=== PATIENT | female | born 1950 | race Caucasian/White ===

== ENCOUNTER → 2018-06-14 | Outpatient (CLI) | payer BC ==
--- NOTE | 2018-06-16 10:07 | MM ---
Reason for exam: screening (asymptomatic). Last mammogram was performed 2 years ago. History: Patient is postmenopausal. Family history of breast cancer in maternal grandmother at age 50. Benign right mammotome panel of the right breast, October 29, 2009. Took hormonal contraceptives for 3 years beginning at age 21. Took estrogen for 10 years beginning at age 45. Physical Findings: A clinical breast exam by your physician is recommended on an annual basis and results should be correlated with mammographic findings. MG Screening Mammo w CAD Bilateral CC and MLO view(s) were taken. Prior study comparison: June 24, 2016, bilateral MG screening mammo w CAD. December 17, 2012, bilateral digital screening mammo w/CAD. There are scattered fibroglandular densities. Previous mammotome biopsy in the right breast. No significant changes when compared with prior studies. ASSESSMENT: Negative, BI-RAD 1 RECOMMENDATION: Routine screening mammogram of both breasts in 1 year.
== END | disposition home or self-care (01) ==
LOC: RADMAMWWP 13:29
PROVIDERS: ATTEND Family Medicine
DX: Z12.31 Encounter for screening mammogram for malignant neoplasm of breast (principal)
CPT/HCPCS: 77067

== ENCOUNTER → 2022-05-28 | Outpatient (CLI) | payer MEDICARE ==
--- NOTE | 2022-05-30 15:50 | MM ---
Reason for Exam: Screening (asymptomatic). Last mammogram was performed 4 year(s) and 0 month(s) ago. Patient History: Menarche at age 10. First Full-Term at age 24. Left ovary removed at age 33. Right ovary removed at age 33. Hysterectomy at age 33. Postmenopausal. Estrogen for 10 years from age 45 until age 55. Hormonal Contraceptives, starting at age 21 for 3 years. 10/29/2009, Benign Core Biopsy on the right side. Maternal grandmother had breast cancer, age 50. Risk Values: Sirena 5 year model risk: 2.0%. NCI Lifetime model risk: 5.6%. Prior Study Comparison: 12/17/2012 Bilateral Screening Mammogram, [facility]. 06/24/2016 Bilateral Screening Mammogram, [facility]. 06/14/2018 Bilateral Screening Mammogram, [facility]. Tissue Density: There are scattered fibroglandular densities. Findings: Analyzed By CAD. There is no suspicious group of microcalcifications or new suspicious mass in either breast. Overall Assessment: Negative, BI-RAD 1 Management: Screening Mammogram of both breasts in 1 year. 1. Patient should continue monthly self breast exams. 2. A clinical breast exam by your physician is recommended on an annual basis. 3. This exam should not preclude additional follow-up of suspicious palpable abnormalities. Electronically signed and approved by: Dionne Lawton M.D. Radiologist
== END | disposition home or self-care (01) ==
LOC: RADMAMWWP 15:19
PROVIDERS: ATTEND Family Medicine
DX: Z12.31 Encounter for screening mammogram for malignant neoplasm of breast (principal); Z80.3 Family history of malignant neoplasm of breast; Z78.0 Asymptomatic menopausal state
CPT/HCPCS: 77063; 77067

== ENCOUNTER → 2023-02-09 | Outpatient (CLI) | payer MEDICARE ==
--- NOTE | 2023-02-09 12:51 | NM ---
EXAMINATION TYPE: NM thyroid image only DATE OF EXAM: 02/09/2023 COMPARISON: NONE HISTORY: Abnormal thyroid function TECHNIQUE: After the intravenous administration of 10.3 mCi Tc 99m Sodium Pertechnetate. FINDINGS: Intense nodular uptake involving the right jugular the thyroid in 2 locations in left thyroid bed. No other residual significant uptake within the expected region of the thyroid. IMPRESSION: 1. Suspect that these may represent autonomously functioning nodules with very remaining residual thy roid uptake. Recommend ultrasound for further evaluation.
== END | disposition home or self-care (01) ==
LOC: RADNMMAIN 10:39
PROVIDERS: ATTEND Family Medicine
DX: I20.9 Angina pectoris, unspecified (principal); E89.0 Postprocedural hypothyroidism; R94.6 Abnormal results of thyroid function studies
CPT/HCPCS: 78013; A9512

== ENCOUNTER 2023-03-06 11:33 | Day surgery (SDC) | payer MEDICARE ==
[~2023-03-06 11:33] MED LIST: ALPRAZolam 0.25 MG TAB PO PRN
[2023-03-06 13:04] VITALS: RESP 16; TEMP 98
[2023-03-06 14:17] VITALS: BP 138/81; PULSE 93
--- NOTE | 2023-03-06 14:56 | US ---
ULTRASOUND GUIDED FNA THYROID BIOPSY: CLINICAL HISTORY: Status post thyroidectomy with left thyroid bed nodule noted by outside ultrasound FINDINGS: The procedure was explained to the patient. The risks, complications, benefits and alternatives were discussed and any questions were answered. Informed consent was obtained. Patient was placed supin e on the ultrasound table and prepped and draped in the usual sterile fashion. Utilizing a 25 gauge needle, five passes were made into the requested left thyroid bed nodule. Patient was stable throughout the procedure. Pathology is pending. All elements of maximal barrier technique were utilized. IMPRESSION: 1. Successful ultrasound guided FNA thyroid biopsy.
== END 2023-03-06 14:05 | disposition home or self-care (01) ==
LOC: RADPROMAIN 11:33
PROVIDERS: ATTEND Family Medicine
DX: E04.1 Nontoxic single thyroid nodule (principal); E89.0 Postprocedural hypothyroidism
CPT/HCPCS: 10005; 88173; 88305

== ENCOUNTER 2023-12-13 17:55 | Emergency (ER) | payer MEDICARE ==
--- NOTE | 2023-12-13 18:11 | ED ---
SOB HPI - General Chief Complaint: Shortness of Breath Stated Complaint: SOB Time Seen by Provider: 12/13/23 18:08 Source: patient, RN notes reviewed Mode of arrival: wheelchair Limitations: no limitations - History of Present Illness Initial Comments: Patient is a 73-year-old female presented to ER with a chief complaint of shortness of breath. Patient states for the past 4 days she has has been feeling short of breath with extreme increase in symptoms in the past couple of hours. She states she has not been able to lay flat and has been having her bed propped up as she has a motorized bed. She has been using an inhaler without any relief today. Patient states she has been having a chronic cough since she was diagnosed with COVID at the end of October. She also is reporting a pressure sensation in her chest. Denies any dizziness, lightheadedness, nausea, vomiting, fevers, chills, abdominal pain, urinary complaints, constipation/diarrhea. - Related Data Home Medications Medication Instructions Recorded Confirmed Topiramate [Topamax] 100 mg PO HS 04/02/15 03/06/23 Levothyroxine Sodium [Synthroid] 25 mcg PO DAILY 02/26/23 03/06/23 QUEtiapine [SEROquel] 50 mg PO HS 02/26/23 03/06/23 Previous Rx's Medication Instructions Recorded Albuterol Inhaler [Ventolin Hfa 1 - 2 puff INHALATION Q6H PRN #1 12/13/23 Inhaler] each Allergies Allergy/AdvReac Type Severity Reaction Status Date / Time No Known Allergies Allergy Verified 12/13/23 18:00 Review of Systems ROS Statement: Those systems with pertinent positive or pertinent negative responses have been documented in the HPI. ROS Other: All systems not noted in ROS Statement are negative. Past Medical History Past Medical History: Osteoarthritis (OA), Thyroid Disorder History of Any Multi-Drug Resistant Organisms: None Reported Past Surgical History: Section, Hysterectomy Additional Past Surgical History / Comment(s): partial thyroidectomy - unsure if it was cancer Past Anesthesia/Blood Transfusion Reactions: No Reported Reaction Past Psychological History: Bipolar, Depression Smoking Status: Never smoker Past Alcohol Use History: Rare Past Drug Use History: None Reported - Past Family History Mother Family Medical History: No Reported History General Exam Limitations: no limitations General appearance: alert, anxious Head exam: Present: atraumatic, normocephalic, normal inspection Eye exam: Present: normal appearance, PERRL, EOMI. Absent: scleral icterus, conjunctival injection, periorbital swelling Respiratory exam: Present: wheezes (Expiratory wheezes bilaterally. Audible without stethoscope) Cardiovascular Exam: Present: normal rhythm, tachycardia, normal heart sounds Extremities exam: Present: normal inspection, full ROM, normal capillary refill. Absent: tenderness, pedal edema, joint swelling, calf tenderness Neurological exam: Present: alert, oriented X3, CN II-XII intact Psychiatric exam: Present: normal affect, normal mood Skin exam: Present: warm, dry, intact, normal color. Absent: rash Course Vital Signs 12/13/23 12/13/23 12/13/23 17:58 18:07 18:18 Temperature 98.6 F Pulse Rate 122 H 115 H Respiratory 30 H 26 H Rate Blood Pressure 182/99 O2 Sat by Pulse 95 Oximetry 12/13/23 12/13/23 12/13/23 18:27 19:38 19:48 Temperature Pulse Rate 112 H 102 H Respiratory 20 Rate Blood Pressure O2 Sat by Pulse Oximetry 12/13/23 12/13/23 12/13/23 19:49 19:50 20:55 Temperature 98.2 F Pulse Rate 110 H 106 H 98 Respiratory 20 22 Rate Blood Pressure 168/82 180/81 O2 Sat by Pulse 98 94 L Oximetry 12/13/23 21:29 Temperature 98.2 F Pulse Rate 106 H Respiratory 22 Rate Blood Pressure 191/95 O2 Sat by Pulse 94 L Oximetry Medical Decision Making - Medical Decision Making Was pt. sent in by a medical professional or institution (, PA, CYANIDE FURNACE OPERATOR, urgent care, hospital, or senior care...) When possible be specific @ -No Did you speak to anyone other than the patient for history (EMS, parent, family, police, friend...)? What history was obtained from this source @ -No Did you review nursing and triage notes (agree or disagree)? Why? @ -I reviewed and agree with nursing and triage notes Were old charts reviewed (outside hosp., previous admission, EMS record, old EKG, old radiological studies, urgent care reports/EKG's, senior care records)? Report findings @ -No old charts were reviewed Differential Diagnosis (chest pain, altered mental status, abdominal pain women, abdominal pain men, vaginal bleeding, weakness, fever, dyspnea, syncope, headache, dizziness, GI bleed, back pain, seizure, CVA, palpatations, mental health, musculoskeletal)? @ -Differential Dyspnea:Coronary syndrome, arrhythmia, tamponade, asthma, COPD, pulmonary embolism, pneumonia, pneumothorax, pulmonary effusion, anaphylaxis, diabetic ketoacidosis, flailed chest, pulmonary contusion, diaphragmatic rupture, anemia, neuromuscular, this is not meant to be an all-inclusive list. EKG interpreted by me (3pts min.). @ -As above X-rays interpreted by me (1pt min.). @ -Chest x-ray interpreted by me shows no acute cardiopulmonary process. CT interpreted by me (1pt min.). @ -None done U/S interpreted by me (1pt. min.). @ -None done What testing was considered but not performed or refused? (CT, X-rays, U/S, labs)? Why? @ -None What meds were considered but not given or refused? Why? @ -None Did you discuss the management of the patient with other professionals (professionals i.e. , PA, CYANIDE FURNACE OPERATOR, lab, RT, psych nurse, social contact worker, graduate student instructor, teacher, aboriginal home school liaison officer, case checker)? Give summary @ -No Was smoking cessation discussed for >3mins.? @ -No Was critical care preformed (if so, how long)? @ -No Were there social determinants of health that impacted care today? How? (Ho melessness, low income, unemployed, alcoholism, drug addiction, transportation, low edu. Level, literacy, decrease access to med. care, shelter, rehab)? @ -No Was there de-escalation of care discussed even if they declined (Discuss DNR or withdrawal of care, Hospice)? DNR status @ -No What co-morbidities impacted this encounter? (DM, HTN, Smoking, COPD, CAD, Cancer, CVA, ARF, Chemo, Hep., AIDS, mental health diagnosis, sleep apnea, morbid obesity)? @ -None Was patient admitted / discharged? Hospital course, mention meds given and route, prescriptions, significant lab abnormalities, going to OR and other pertinent info. @ -Discharged. Patient is a 73 year old female presenting to the ER with a chief complaint to shortness of breath. History and physical exam completed. Vitals significant for tachycardia at 122 bpm. Patient's oxygen saturation 95 on room air. Patient was having conversational dyspnea and appeared mildly in distress with audible wheezing. Bilateral significant expiratory wheezes on exam. Labs obtained significant for white blood cell count of 14.1. D-dimer and troponin negative. EKG showed sinus tachycardia with no acute evidence of infarct or ischemia. Influenza, RSV, COVID-negative. Chest x-ray interpreted by me shows no acute cardiopulmonary process. Patient received 2 DuoNeb treatments with improvement of wheezing. Patient also received IV Solu-Medrol and Decadron. Patient was satting 98% on 4 L nasal cannula. Patient was monitored in the ER as weaned off oxygen as she is not on any at home. Admission was considered but patient stated she would like to go home as she can follow-up with her primary care tomorrow. Patient remained stable on room air with oxygen saturations of 94 at discharge. Strict return parameters were discussed. Patient prescribed albuterol inhaler. Advised her to follow-up with PCP in the next 1 to 2 days. Patient and family, at bedside, expressed understanding and agreement with care plan. Case discussed with ER attending, Dr. June. Undiagnosed new problem with uncertain prognosis? @ -No Drug Therapy requiring intensive monitoring for toxicity (Heparin, Nitro, Insulin, Cardizem)? @ -No Were any procedures done? @ -No Diagnosis/symptom? @ -Bronchospasm Acute, or Chronic, or Acute on Chronic? @ -Acute Uncomplicated (without systemic symptoms) or Complicated (systemic symptoms)? @ -Complicated Side effects of treatment? @ -No Exacerbation, Progression, or Severe Exacerbation? @ -No Poses a threat to life or bodily function? How? (Chest pain, USA, CT, pneumonia, PE, COPD, DKA, ARF, appy, cholecystitis, CVA, Diverticulitis, Homicidal, Suicidal, threat to staff... and all critical care pts) @ -Yes, bronchospasm can lead to acute respiratory failure which can be life- threatening. - Lab Data Result diagrams: 12/13/23 18:23 12/13/23 18:23 Lab Results 12/13/23 12/13/23 12/13/23 Range/Units 18:23 18:23 18:23 WBC 14.1 H (3.8-10.6) k/uL RBC 4.45 (3.80-5.40) m/uL Hgb 13.0 (11.4-16.0) gm/dL Hct 38.7 (34.0-46.0) % MCV 87.1 (80.0-100.0) fL MCH 29.2 (25.0-35.0) pg MCHC 33.5 (31.0-37.0) g/dL RDW 13.9 (11.5-15.5) % Plt Count 345 (150-450) k/uL MPV 7.5 PT 10.3 (10.0-12.5) sec INR 0.9 (<1.2) APTT 26.4 (22.0-30.0) sec D-Dimer 0.52 (<0.60) mg/L FEU Sodium 145 (137-145) mmol/L Potassium 3.7 (3.5-5.1) mmol/L Chloride 115 H (98-107) mmol/L Carbon Dioxide 23 (22-30) mmol/L Anion Gap 7 mmol/L BUN 14 (7-17) mg/dL Creatinine 1.02 (0.52-1.04) mg/dL Est GFR (CKD-EPI)AfAm 64 (>60 ml/min/1.73 sqM) Est GFR (CKD-EPI)NonAf 55 (>60 ml/min/1.73 sqM) Glucose 141 H (74-99) mg/dL Calcium 9.0 (8.4-10.2) mg/dL Magnesium 2.0 (1.6-2.3) mg/dL Total Bilirubin 0.3 (0.2-1.3) mg/dL AST 20 (14-36) U/L ALT 15 (4-34) U/L Alkaline Phosphatase 101 (38-126) U/L Troponin I (0.000-0.034) ng/mL Total Protein 7.3 (6.3-8.2) g/dL Albumin 4.0 (3.5-5.0) g/dL Influenza Type A (PCR) (Not Detectd) Influenza Type B (PCR) (Not Detectd) RSV (PCR) (Not Detectd) SARS-CoV-2 (PCR) (Not Detectd) 12/13/23 12/13/23 Range/Units 18:23 18:23 WBC (3.8-10.6) k/uL RBC (3.80-5.40) m/uL Hgb (11.4-16.0) gm/dL Hct (34.0-46.0) % MCV (80.0-100.0) fL MCH (25.0-35.0) pg MCHC (31.0-37.0) g/dL RDW (11.5-15.5) % Plt Count (150-450) k/uL MPV PT (10.0-12.5) sec INR (<1.2) APTT (22.0-30.0) sec D-Dimer (<0.60) mg/L FEU Sodium (137-145) mmol/L Potassium (3.5-5.1) mmol/L Chloride (98-107) mmol/L Carbon Dioxide (22-30) mmol/L Anion Gap mmol/L BUN (7-17) mg/dL Creatinine (0.52-1.04) mg/dL Est GFR (CKD-EPI)AfAm (>60 ml/min/1.73 sqM) Est GFR (CKD-EPI)NonAf (>60 ml/min/1.73 sqM) Glucose (74-99) mg/dL Calcium (8.4-10.2) mg/dL Magnesium (1.6-2.3) mg/dL Total Bilirubin (0.2-1.3) mg/dL AST (14-36) U/L ALT (4-34) U/L Alkaline Phosphatase (38-126) U/L Troponin I <0.012 (0.000-0.034) ng/mL Total Protein (6.3-8.2) g/dL Albumin (3.5-5.0) g/dL Influenza Type A (PCR) Not Detected (Not Detectd) Influenza Type B (PCR) Not Detected (Not Detectd) RSV (PCR) Not Detected (Not Detectd) SARS-CoV-2 (PCR) Not Detected (Not Detectd) - EKG Data -: EKG Interpreted by [facility] EKG Comments: EKG taken at 18: 12 shows sinus tachycardia with no acute ST segment or T wave abnormalities. Ventricular rate 116, MS interval 176, QRS duration 76, QT/QTc 341/410. - Radiology Data Radiology results: report reviewed, image reviewed Disposition Clinical Impression: Bronchospasm Disposition: HOME SELF-CARE Condition: Stable Instructions (If sedation given, give patient instructions): Bronchospasm (ED) Additional Instructions: Please follow-up with primary care in the next 1 to 2 days. Please have low threshold to returning to ER for new or worsening symptoms Prescriptions: Albuterol Inhaler [Ventolin Hfa Inhaler] 1 - 2 puff INHALATION Q6H PRN #1 each PRN Reason: Shortness Of Breath Is patient prescribed a controlled substance at d/c from ED?: No Referrals: John French MD [REFERRING] - 1-2 days Time of Disposition: 21:08
[2023-12-13] MEDS: IPRATROPIUM-ALBUTEROL 3 ML NEB INHALATION STA ×2 (18:15→19:38)
[2023-12-13 18:48] LABS: HCT 38.7 % (34.0-46.0); MCH 29.2 pg (25.0-35.0); MCHC 33.5 g/dL (31.0-37.0); MCV 87.1 fL (80.0-100.0); Mean Platelet Volume 7.5; Platelet Count 345 k/uL (150-450); RBC 4.45 m/uL (3.80-5.40); RDW 13.9 % (11.5-15.5); WBC 14.1 k/uL (3.8-10.6)
--- NOTE | 2023-12-13 18:56 | XR ---
EXAMINATION TYPE: XR chest 2V DATE OF EXAM: 12/13/2023 6:46 PM CLINICAL INDICATION:Female, 73 years old with history of wheezing; COMPARISON: None TECHNIQUE: XR chest 2V Frontal and lateral views of the chest. FINDINGS: Lungs/Pleura: There is no evidence of pleural effusion, focal consolidation, or pneumothorax. Pulmonary vascularity: Unremarkable. Heart/mediastinum: Cardiomediastinal silhouette is unremarkable. Musculoskeletal: No acute osseous pathology. IMPRESSION: No acute cardiopulmonary disease/process.
[2023-12-13 19:03] LABS: INR 0.9 (<1.2); Partial Thromboplastin Time 26.4 sec (22.0-30.0); Prothrombin Time 10.3 sec (10.0-12.5)
[2023-12-13 19:11] LABS: ALT 15 U/L (4-34); AST 20 U/L (14-36); African American GFR (CKD) 64 (>60 ml/min/1.73 sqM); Alkaline Phosphatase 101 U/L (38-126); Anion Gap 7 mmol/L; Blood Urea Nitrogen 14 mg/dL (7-17); Carbon Dioxide 23 mmol/L (22-30); Chloride 115 mmol/L (98-107); Glucose 141 mg/dL (74-99); Non-African American GFR(CKD) 55 (>60 ml/min/1.73 sqM); Potassium 3.7 mmol/L (3.5-5.1); Sodium 145 mmol/L (137-145); Total Bilirubin 0.3 mg/dL (0.2-1.3); Total Protein 7.3 g/dL (6.3-8.2)
[2023-12-13] MEDS: methylPREDNISolone SOD SUCCI 125 MG/2 ML VIAL IV STA (19:47)
[2023-12-13] MEDS: DEXAMETHASONE SOD PHOSPHATE 10 MG/ML 1 ML VIAL IVP STA (21:22)
[2023-12-13 21:26] VITALS: RESP 22; TEMP 98.2
[2023-12-13 21:58] VITALS: BP 191/95; PULSE 106
== END 2023-12-13 21:31 | disposition home or self-care (01) ==
LOC: EC 17:55
DX: J98.01 Acute bronchospasm (principal); R00.0 Tachycardia, unspecified; F31.9 Bipolar disorder, unspecified; E07.9 Disorder of thyroid, unspecified; Z20.822 Contact with and (suspected) exposure to COVID-19; Z79.890 Hormone replacement therapy; Z79.899 Other long term (current) drug therapy
CPT/HCPCS: 36415; 94640 ×2; 93005; 85379; 80053; 83735; 84484; 85027; 85610; 85730; 87636; 71046; 99285; 96374; 96375; J1100; J2930

== ENCOUNTER 2024-01-01 06:09 | Observation (INO) | payer MEDICARE ==
--- NOTE | 2024-01-01 06:22 | ED ---
General Adult HPI - General Chief complaint: Shortness of Breath Stated complaint: SOB Time Seen by Provider: 01/01/24 06:13 Source: patient, RN notes reviewed, old records reviewed Mode of arrival: wheelchair Limitations: no limitations - History of Present Illness Initial comments: 73-year-old female presents emergency department chief complaint of shortness of breath. Patient states she was seen few weeks ago in the emergency department follow-up with line service attendant felt that she may have underlying asthma. Patient states her pulse ox at home was 89. Patient states she was placed on antibiotics and steroids states that she just finished her steroids a few days ago and symptoms have worsened. Patient states that she did try a rescue inhaler at home with minimal relief. She states the wheezing, shortness of breath is worsening. Patient states she has a nonproductive cough she states she has some chest pressure. Patient denies any leg swelling no history of DVT or PE. - Related Data Home Medications Medication Instructions Recorded Confirmed Topiramate [Topamax] 100 mg PO HS 04/02/15 01/01/24 QUEtiapine [SEROquel] 50 mg PO HS 02/26/23 01/01/24 Levothyroxine Sodium [Synthroid] 25 mcg PO HS 01/01/24 01/01/24 Previous Rx's Medication Instructions Recorded Albuterol Inhaler [Ventolin Hfa 1 - 2 puff INHALATION Q6H PRN #1 12/13/23 Inhaler] each Allergies Allergy/AdvReac Type Severity Reaction Status Date / Time No Known Allergies Allergy Verified 12/13/23 18:00 Review of Systems ROS Statement: Those systems with pertinent positive or pertinent negative responses have been documented in the HPI. ROS Other: All systems not noted in ROS Statement are negative. Past Medical History Past Medical History: Osteoarthritis (OA), Thyroid Disorder History of Any Multi-Drug Resistant Organisms: None Reported Past Surgical History: Section, Hysterectomy Additional Past Surgical History / Comment(s): partial thyroidectomy - unsure if it was cancer Past Anesthesia/Blood Transfusion Reactions: No Reported Reaction Past Psychological History: Bipolar, Depression Smoking Status: Never smoker Past Alcohol Use History: Rare Past Drug Use History: None Reported - Past Family History Mother Family Medical History: No Reported History General Exam Limitations: no limitations General appearance: alert, in distress Head exam: Present: atraumatic, normocephalic, normal inspection Eye exam: Present: normal appearance, PERRL, EOMI. Absent: scleral icterus, conjunctival injection, periorbital swelling ENT exam: Present: normal exam, normal oropharynx, mucous membranes moist Neck exam: Present: normal inspection, full ROM. Absent: tenderness, meningismus, lymphadenopathy Respiratory exam: Present: respiratory distress, wheezes, decreased breath sounds. Absent: normal lung sounds bilaterally, rales, rhonchi, stridor Cardiovascular Exam: Present: normal rhythm, tachycardia, normal heart sounds. Absent: systolic murmur, diastolic murmur, rubs, gallop, clicks Neurological exam: Present: alert, oriented X3 Course Vital Signs 01/01/24 01/01/24 01/01/24 06:10 06:27 06:39 Temperature 97.7 F Pulse Rate 118 H 104 H 112 H Respiratory 36 H Rate Blood Pressure 182/75 O2 Sat by Pulse 93 L Oximetry 01/01/24 01/01/24 01/01/24 06:48 07:16 08:25 Temperature 98.6 F Pulse Rate 111 H 107 H 98 Respiratory 17 18 Rate Blood Pressure 179/82 136/78 O2 Sat by Pulse 99 97 96 Oximetry 01/01/24 01/01/24 01/01/24 08:36 11:42 11:52 Temperature Pulse Rate 106 H 104 H 106 H Respiratory Rate Blood Pressure O2 Sat by Pulse Oximetry 01/01/24 12:10 Temperature Pulse Rate 98 Respiratory 22 Rate Blood Pressure 151/73 O2 Sat by Pulse 93 L Oximetry EKG Findings - EKG Comments: EKG Findings:: EKG performed at 6: 23 sinus tachycardia rate of 110 NH 137 QRS 63 QT/QTc 241/306 - EKG Results: EKG: interpreted by LEO Medical Decision Making - Medical Decision Making Was pt. sent in by a medical professional or institution (, PA, CLERK CASHIER, urgent care, hospital, or [facility]...) When possible be specific @ -No Did you speak to anyone other than the patient for history (EMS, parent, family, police, friend...)? What history was obtained from this source @ -No Did you review nursing and triage notes (agree or disagree)? Why? @ -I reviewed and agree with nursing and triage notes Were old charts reviewed (outside hosp., previous admission, EMS record, old EKG, old radiological studies, urgent care reports/EKG's, [facility] records)? Report findings @Reviewed recent ER records Differential Diagnosis (chest pain, altered mental status, abdominal pain women, abdominal pain men, vaginal bleeding, weakness, fever, dyspnea, syncope, headache, dizziness, GI bleed, back pain, seizure, CVA, palpatations, mental health, musculoskeletal)? @ -Differential Dyspnea: Coronary syndrome, arrhythmia, tamponade, asthma, COPD, pulmonary embolism, pneumonia, pneumothorax, pulmonary effusion, anaphylaxis, diabetic ketoacidosis, flailed chest, pulmonary contusion, diaphragmatic rupture, anemia, herber romuscular, this is not meant to be an all-inclusive list. EKG interpreted by me (3pts min.). @ -As above X-rays interpreted by me (1pt min.). @ -Chest x-ray shows no acute cardiopulmonary process CT interpreted by me (1pt min.). @ -None done U/S interpreted by me (1pt. min.). @ -None done What testing was considered but not performed or refused? (CT, X-rays, U/S, labs)? Why? @ -None What meds were considered but not given or refused? Why? @ -None Did you discuss the management of the patient with other professionals (professionals i.e. , PA, CLERK CASHIER, lab, RT, psych nurse, social worker school, toaster operator, teacher, development officer, rehabilitation caseworker)? Give summary @ -Dr. Branch for admission Was smoking cessation discussed for >3mins.? @ -No Was critical care preformed (if so, how long)? @ -No Were there social determinants of health that impacted care today? How? (Homelessness, low income, unemployed, alcoholism, drug addiction, transportation, low edu. Level, literacy, decrease access to med. care, [place] [facility], rehab)? @ -No Was there de-escalation of care discussed even if they declined (Discuss DNR or withdrawal of care, Hospice)? DNR status @ -No What co-morbidities impacted this encounter? (DM, HTN, Smoking, COPD, CAD, Cancer, CVA, ARF, Chemo, Hep., AIDS, mental health diagnosis, sleep apnea, morbi d obesity)? @ -None Was patient admitted / discharged? Hospital course, mention meds given and route , prescriptions, significant lab abnormalities, going to OR and other pertinent info. @ -[Admitted patient presented in acute respiratory distress, patient required multiple breathing treatments, steroids still has persistent wheezing will be admitted for further evaluation. Undiagnosed new problem with uncertain prognosis? @ -No Drug Therapy requiring intensive monitoring for toxicity (Heparin, Nitro, Insulin, Cardizem)? @ -No Were any procedures done? @ -No Diagnosis/symptom? @ -Acute respiratory distress, asthma exacerbation Acute, or Chronic, or Acute on Chronic? @ -Acute Uncomplicated (without systemic symptoms) or Complicated (systemic symptoms)? @ -Complicated Side effects of treatment? @ -No Exacerbation, Progression, or Severe Exacerbation? @ -Exacerbation Poses a threat to life or bodily function? How? (Chest pain, USA, OR, pneumonia, PE, COPD, DKA, ARF, appy, cholecystitis, CVA, Diverticulitis, Homicidal, Suicidal, threat to staff... and all critical care pts) @ -Yes possible respiratory failure - Lab Data Result diagrams: 01/01/24 06:24 01/01/24 06:24 Lab Results 01/01/24 01/01/24 01/01/24 Range/Units 06:24 06:24 06:24 WBC 15.6 H (3.8-10.6) k/uL RBC 5.08 (3.80-5.40) m/uL Hgb 14.2 (11.4-16.0) gm/dL Hct 45.6 (34.0-46.0) % MCV 89.7 (80.0-100.0) fL MCH 27.9 (25.0-35.0) pg MCHC 31.1 (31.0-37.0) g/dL RDW 14.0 (11.5-15.5) % Plt Count 350 (150-450) k/uL MPV 7.3 Neutrophils % 76 % Lymphocytes % 15 % Monocytes % 4 % Eosinophils % 3 % Basophils % 0 % Neutrophils # 11.9 H (1.3-7.7) k/uL Lymphocytes # 2.3 (1.0-4.8) k/uL Monocytes # 0.6 (0-1.0) k/uL Eosinophils # 0.5 (0-0.7) k/uL Basophils # 0.1 (0-0.2) k/uL Hypochromasia Slight PT 10.5 (10.0-12.5) sec INR 0.9 (<1.2) APTT 25.1 (22.0-30.0) sec Sodium 141 (137-145) mmol/L Potassium 4.8 (3.5-5.1) mmol/L Chloride 112 H (98-107) mmol/L Carbon Dioxide 19 L (22-30) mmol/L Anion Gap 10 mmol/L BUN 19 H (7-17) mg/dL Creatinine 0.99 (0.52-1.04) mg/dL Est GFR (CKD-EPI)AfAm 66 (>60 ml/min/1.73 sqM) Est GFR (CKD-EPI)NonAf 57 (>60 ml/min/1.73 sqM) Glucose 164 H (74-99) mg/dL Plasma Lactic Acid Daniel (0.7-2.0) mmol/L Calcium 8.9 (8.4-10.2) mg/dL Magnesium 2.3 (1.6-2.3) mg/dL Total Bilirubin 1.0 (0.2-1.3) mg/dL AST 32 (14-36) U/L ALT 16 (4-34) U/L Alkaline Phosphatase 77 (38-126) U/L Troponin I (0.000-0.034) ng/mL NT-Pro-B Natriuret Pep 68 pg/mL Total Protein 7.5 (6.3-8.2) g/dL Albumin 4.1 (3.5-5.0) g/dL Influenza Type A (PCR) (Not Detectd) Influenza Type B (PCR) (Not Detectd) RSV (PCR) (Not Detectd) SARS-CoV-2 (PCR) (Not Detectd) 01/01/24 01/01/24 01/01/24 Range/Units 06:24 06:24 06:24 WBC (3.8-10.6) k/uL RBC (3.80-5.40) m/uL Hgb (11.4-16.0) gm/dL Hct (34.0-46.0) % MCV (80.0-100.0) fL MCH (25.0-35.0) pg MCHC (31.0-37.0) g/dL RDW (11.5-15.5) % Plt Count (150-450) k/uL MPV Neutrophils % % Lymphocytes % % Monocytes % % Eosinophils % % Basophils % % Neutrophils # (1.3-7.7) k/uL Lymphocytes # (1.0-4.8) k/uL Monocytes # (0-1.0) k/uL Eosinophils # (0-0.7) k/uL Basophils # (0-0.2) k/uL Hypochromasia PT (10.0-12.5) sec INR (<1.2) APTT (22.0-30.0) sec Sodium (137-145) mmol/L Potassium (3.5-5.1) mmol/L Chloride (98-107) mmol/L Carbon Dioxide (22-30) mmol/L Anion Gap mmol/L BUN (7-17) mg/dL Creatinine (0.52-1.04) mg/dL Est GFR (CKD-EPI)AfAm (>60 ml/min/1.73 sqM) Est GFR (CKD-EPI)NonAf (>60 ml/min/1.73 sqM) Glucose (74-99) mg/dL Plasma Lactic Acid Daniel 1.3 (0.7-2.0) mmol/L Calcium (8.4-10.2) mg/dL Magnesium (1.6-2.3) mg/dL Total Bilirubin (0.2-1.3) mg/dL AST (14-36) U/L ALT (4-34) U/L Alkaline Phosphatase (38-126) U/L Troponin I <0.012 (0.000-0.034) ng/mL NT-Pro-B Natriuret Pep pg/mL Total Protein (6.3-8.2) g/dL Albumin (3.5-5.0) g/dL Influenza Type A (PCR) Not Detected (Not Detectd) Influenza Type B (PCR) Not Detected (Not Detectd) RSV (PCR) Not Detected (Not Detectd) SARS-CoV-2 (PCR) Not Detected (Not Detectd) Disposition Clinical Impression: Asthma exacerbation, Respiratory distress, acute, Hypoxia Disposition: ADMITTED IP TO THIS [facility] Time of Disposition: 07:44
[2024-01-01] MEDS: IPRATROPIUM-ALBUTEROL 3 ML NEB INHALATION STA (06:25)
[2024-01-01 06:36] LABS: Basophils # (A) 0.1 k/uL (0-0.2); Basophils % (A) 0 %; Eosinophils # (A) 0.5 k/uL (0-0.7); Eosinophils % (A) 3 %; HCT 45.6 % (34.0-46.0); HGB 14.2 gm/dL (11.4-16.0); Hypochromasia Slight; Lymphocytes # (A) 2.3 k/uL (1.0-4.8); Lymphocytes % (A) 15 %; MCH 27.9 pg (25.0-35.0); MCHC 31.1 g/dL (31.0-37.0); MCV 89.7 fL (80.0-100.0); Mean Platelet Volume 7.3; Monocytes # (A) 0.6 k/uL (0-1.0); Monocytes % (A) 4 %; Neutrophils # (A) 11.9 k/uL (1.3-7.7); Neutrophils % (A) 76 %; Platelet Count 350 k/uL (150-450); RBC 5.08 m/uL (3.80-5.40); WBC 15.6 k/uL (3.8-10.6)
--- NOTE | 2024-01-01 06:40 | XR ---
EXAMINATION TYPE: XR chest 1V DATE OF EXAM: 01/01/2024 COMPARISON: Chest x-ray December 13, 2023 HISTORY: Difficulty in breathing. TECHNIQUE: Single frontal view of the chest is obtained. FINDINGS: There is no focal air space opacity,, pleural effusion, or pneumothorax seen bilaterally. Mild cardiomegaly is redemonstrated. The osseous structures are intact. IMPRESSION: Mild cardiomegaly without acute pulmonary process.
[2024-01-01] MEDS: methylPREDNISolone SOD SUCCI 125 MG/2 ML VIAL IV STA (06:44)
[2024-01-01 06:47] LABS: ALT 16 U/L (4-34); AST 32 U/L (14-36); African American GFR (CKD) 66 (>60 ml/min/1.73 sqM); Albumin 4.1 g/dL (3.5-5.0); Alkaline Phosphatase 77 U/L (38-126); Anion Gap 10 mmol/L; Blood Urea Nitrogen 19 mg/dL (7-17); Calcium 8.9 mg/dL (8.4-10.2); Carbon Dioxide 19 mmol/L (22-30); Chloride 112 mmol/L (98-107); Glucose 164 mg/dL (74-99); Magnesium 2.3 mg/dL (1.6-2.3); Non-African American GFR(CKD) 57 (>60 ml/min/1.73 sqM); Sodium 141 mmol/L (137-145); Total Protein 7.5 g/dL (6.3-8.2)
[2024-01-01 06:51] LABS: Potassium 4.8 mmol/L (3.5-5.1)
[2024-01-01 06:54] LABS: INR 0.9 (<1.2); Partial Thromboplastin Time 25.1 sec (22.0-30.0); Prothrombin Time 10.5 sec (10.0-12.5)
[2024-01-01 06:56] LABS: NT-Pro-B-Type Natriuretic Pept 68 pg/mL
[2024-01-01] MEDS ORDERED: ONDANSETRON 4 MG/2 ML VIAL IVP PRN (07:44)
[2024-01-01] MEDS ORDERED: NALOXONE 0.4 MG/ML 1 ML VIAL IV PRN (07:44)
[2024-01-01] MEDS ORDERED: IPRATROPIUM-ALBUTEROL 3 ML NEB INHALATION PRN (07:46)
[2024-01-01] MEDS: KETOROLAC 15 MG/ML 1 ML VIAL IVP STA (07:51)
[2024-01-01] MEDS: IPRATROPIUM-ALBUTEROL 3 ML NEB INHALATION SCH ×2 (08:23→11:40)
[2024-01-01] MEDS: SYMBICORT 160-4.5 MCG INHALER INHALATION SCH (09:00)
[2024-01-01] MEDS: LEVOTHYROXINE 25 MCG TAB PO SCH (09:44)
--- NOTE | 2024-01-01 10:10 | P.CNPUL ---
History of Present Illness Consult date: 01/01/24 Requesting physician: Adryan Branch Reason for consult: dyspnea, cough, asthma Chief complaint: Shortness of breath. History of present illness: Pulmonary consult dated January 01, 2024. 73-year-old female, seen in the emergency department, room 3. The patient apparently presented to the hospital, on December 31, at 6:00 in the morning, for shortness of breath. She been having shortness of breath for a couple of weeks. The patient apparently was told by her family doctor, that she had asthma. She apparently has not been doing well ever since she had coronavirus infection in the past. She never has been formally diagnosed with asthma. Her complaints include shortness of breath, wheezing, chest tightness, and cough. The patient was on 2 L of oxygen. No IV fluids. She is a lifelong non-smoker. She denies any significant past medical history, other than hypothyroidism. Her home m edications included Topamax, levothyroxine, Seroquel, and an albuterol inhaler. She has no allergies. White count 15.6, hemoglobin 14.2, hematocrit 45.6, and platelet count 350,000. Sodium 141, potassium 4.8, chlorides 112, CO2 19, anion gap 10, BUN 19, creatinine 0.99. The rest of the labs look normal. Chest x- ray showed only mild cardiomegaly. Review of Systems REVIEW OF SYSTEMS: CONSTITUTIONAL: [Negative.] NEUROLOGIC: [ Negative.] HEENT: [ Negative.] CARDIAC: [Negative.] PULMONARY: Shortness of breath, wheezing, chest tightness, and nonproductive cough. GI: [Negative.] : [Negative.] RHEUMATOLOGIC: [ Negative.] IMMUNOLOGIC: [ Negative.] ENDOCRINE: [Negative. ] DERMATOLOGIC: [Negative.] Past Medical History Past Medical History: Osteoarthritis (OA), Thyroid Disorder History of Any Multi-Drug Resistant Organisms: None Reported Past Surgical History: Section, Hysterectomy Additional Past Surgical History / Comment(s): partial thyroidectomy - unsure if it was cancer Past Anesthesia/Blood Transfusion Reactions: No Reported Reaction Past Psychological History: Bipolar, Depression Smoking Status: Never smoker Past Alcohol Use History: Rare Past Drug Use History: None Reported - Past Family History Mother Family Medical History: No Reported History Medications and Allergies Home Medications Medication Instructions Recorded Confirmed Type Topiramate [Topamax] 100 mg PO HS 04/02/15 01/01/24 History QUEtiapine [SEROquel] 50 mg PO HS 02/26/23 01/01/24 History Albuterol Inhaler [Ventolin Hfa 1 - 2 puff INHALATION Q6H PRN #1 12/13/23 01/01/24 Rx Inhaler] each Levothyroxine Sodium [Synthroid] 25 mcg PO HS 01/01/24 01/01/24 History Allergies Allergy/AdvReac Type Severity Reaction Status Date / Time No Known Allergies Allergy Verified 12/13/23 18:00 Physical Exam Osteopathic Statement: *. No significant issues noted on an osteopathic structural exam other than those noted in the History and Physical/Consult. Vitals: Vital Signs Temp Pulse Resp BP Pulse Ox 01/01/24 08:36 106 H 01/01/24 08:25 98 96 01/01/24 07:16 98.6 F 107 H 18 136/78 97 01/01/24 06:48 111 H 17 179/82 99 01/01/24 06:39 112 H 01/01/24 06:27 104 H 01/01/24 06:10 97.7 F 118 H 36 H 182/75 93 L Intake and Output 12/31/23 01/01/24 01/01/24 22:59 06:59 14:59 Other: Weight 72.575 kg No acute distress, oriented 3. Currently on 2 L of oxygen. Saturations are 97%. HEENT examination is grossly unremarkable. Mucous membranes are moist. No oral lesions. Neck supple. Full range of motion. No adenopathy thyromegaly or neck vein distention. Cardiovascular examination reveals regular rhythm rate. S1-S2 normal. No S3 or S4. No discernible murmur noted. Heart sounds are distant. Heart rate 98 bpm. Lungs reveal expiratory wheezes and rhonchi. No crackles. Breath sounds equal. Slight prolongation on forced maneuver. Abdomen soft bowel sounds are heard. No masses or tenderness. Extremities are intact. No cyanosis clubbing or edema. Skin is without rash or lesion. Neurologic examination is brief but nonfocal. Results - Laboratory Findings CBC and BMP: 01/01/24 06:24 01/01/24 06:24 PT/INR, D-dimer PT 10.5 sec (10.0-12.5) 01/01/24 06:24 INR 0.9 (<1.2) 01/01/24 06:24 Abnormal lab findings: Abnormal Labs 01/01/24 01/01/24 06:24 06:24 WBC 15.6 H Neutrophils # 11.9 H Chloride 112 H Carbon Dioxide 19 L BUN 19 H Glucose 164 H - Diagnostic Findings Chest x-ray: image reviewed Assessment and Plan Assessment: Shortness of breath, chest tightness, cough, wheezing, which could relate to new onset adult type asthma. The patient has not been formally diagnosed. Previous history of coronavirus infection. Lifelong non-smoker. History of hypothyroidism. History of osteoarthritis. Bipolar disorder. Plan: Plan dated January 01, 2024. The patient is seen in the emergency department, room #3. She continues on oxygen at 2 L. Her daughter is with her. She is not receiving any IV fluids. She may have new onset chronic bronchial asthma. I told him that she should see me after discharge, for formal diagnosis. Today, we added Solu-Medrol to her regimen, and also Symbicort. Additional recommendations and suggestions are forthcoming. Prognosis is guarded. Chest x-rays reviewed. The patient is a lifelong non-smoker. Time with Patient: Greater than 30
[2024-01-01] MEDS: methylPREDNISolone SOD SUCCI 125 MG/2 ML VIAL IV SCH (12:01)
[2024-01-01] MEDS ORDERED: methylPREDNISolone SOD SUCCI 125 MG/2 ML VIAL IV SCH (16:00)
[2024-01-01] MEDS: ACETAMINOPHEN TAB 325 MG TAB PO PRN (19:40)
[2024-01-01] MEDS: QUEtiapine 50 MG TAB PO SCH (21:39)
--- NOTE | 2024-01-02 08:09 | P.HPIM ---
History of Present Illness H&P Date: 01/01/24 Chief Complaint: Worsening dyspnea with cough This is a 73-year-old female with past medical history significant for COVID infection in 2021 and in October 2023, obesity, hypothyroidism, osteoarthritis, bipolar, depression, lifelong non-smoker and multiple other medical issues presented to the ER with worsening dyspnea. Reports possible newly diagnosed asthma ,has a rescue inhaler at home. Since her initial COVID infection in 2021 ,she has a lingering nonproductive cough. Complains of worsening dyspnea over the last couple weeks accompanied by wheezing, nonproductive cough with chest pressure after completing antibiotics and a steroid taper.Denies Chest Pain or Palpitations. Denies any lower extremity edema. Denies history of DVT or PE . Attempted her rescue inhaler without relief. Reports O2 Sat at Home 89% on Room Air. Chest x-ray reported mild cardiomegaly without acute pulmonary process. Viral studies negative. afebrile, WBC 15.6, lactic acid 1.3, procalcitonin pending. Hemoglobin 14.2, platelets 350, electrolytes within normal limits with mild elevation of chloride 112, bicarb 19, BUN 19, creatinine 0.99, glucose 164. EKG reported sinus tachycardia, troponin negative x 1, proBNP 68. On admission O2 sat 93% on room air, tachypneic ,tachycardic with heart rate in the 1 teens. Currently maintaining O2 sats of 97% on room air, heart rate 98 and respiratory rate within normal limits. Review of Systems ROS Statement: Those systems with pertinent positive or pertinent negative responses have been documented in the HPI. ROS Other: All systems not noted in ROS Statement are negative. Past Medical History Past Medical History: Osteoarthritis (OA), Thyroid Disorder History of Any Multi-Drug Resistant Organisms: None Reported Past Surgical History: Section, Hysterectomy Additional Past Surgical History / Comment(s): partial thyroidectomy - unsure if it was cancer Past Anesthesia/Blood Transfusion Reactions: No Reported Reaction Past Psychological History: Bipolar, Depression Smoking Status: Never smoker Past Alcohol Use History: Rare Past Drug Use History: None Reported - Past Family History Mother Family Medical History: No Reported History Medications and Allergies Home Medications Medication Instructions Recorded Confirmed Type Topiramate [Topamax] 100 mg PO HS 04/02/15 01/01/24 History QUEtiapine [SEROquel] 50 mg PO HS 02/26/23 01/01/24 History Albuterol Inhaler [Ventolin Hfa 1 - 2 puff INHALATION Q6H PRN #1 12/13/23 01/01/24 Rx Inhaler] each Levothyroxine Sodium [Synthroid] 25 mcg PO HS 01/01/24 01/01/24 History Allergies Allergy/AdvReac Type Severity Reaction Status Date / Time No Known Allergies Allergy Verified 12/13/23 18:00 Physical Exam Vitals: Vital Signs Temp Pulse Resp BP Pulse Ox 01/01/24 12:10 98 22 151/73 93 L 01/01/24 11:52 106 H 01/01/24 11:42 104 H 01/01/24 08:36 106 H 01/01/24 08:25 98 96 01/01/24 07:16 98.6 F 107 H 18 136/78 97 01/01/24 06:48 111 H 17 179/82 99 01/01/24 06:39 112 H 01/01/24 06:27 104 H 01/01/24 06:10 97.7 F 118 H 36 H 182/75 93 L Intake and Output 01/01/24 01/01/24 01/01/24 06:59 14:59 22:59 Other: Weight 72.575 kg PHYSICAL EXAM: VITAL SIGNS: [As above] GENERAL: Alert and oriented x 3, sitting up in bed, no acute distress HEENT: Normocephalic, conjunctivae normal. eyes normal. NECK: Supple, no JVD. No thyroid enlargement. No LNs CARDIOVASCULAR: S1, S2 regular. No murmur RESPIRATION: Unlabored, equal air entry, scattered rhonchi with expiratory wheezing. ABDOMEN: Soft, nontender . No guarding. no masses palpable. No ascites, No hepatosplenomegaly.Bowel sounds heard. LEGS: No edema. no swelling NERVOUS SYSTEM: Cranial N 2-12 grossly normal. No focal deficits. Strength and sensation grossly intact. Skin: no lesions, no rash Results CBC & Chem 7: 01/01/24 06:24 01/01/24 06:24 Labs: Abnormal Lab Results - Last 24 Hours (Table) 01/01/24 01/01/24 Range/Units 06:24 06:24 WBC 15.6 H (3.8-10.6) k/uL Neutrophils # 11.9 H (1.3-7.7) k/uL Chloride 112 H (98-107) mmol/L Carbon Dioxide 19 L (22-30) mmol/L BUN 19 H (7-17) mg/dL Glucose 164 H (74-99) mg/dL Assessment and Plan Assessment: Acute hypoxic respiratory failure in a patient went stating lingering cough since her COVID infection in 2021, worsening shortness of breath , cough , chest tightness and wheezing, reporting new onset asthma. COVID infection x 2, 2021 and recently in October 2023 Hypothyroidism Osteoarthritis Bipolar disorder Obesity, BMI 30 Lifelong non-smoker Plan: Continue on current medication regimen ,monitoring and symptomatic treatment. Aggressive pulmonary toileting with nebulized bronchodilators, IV steroids and Symbicort. Pulmonary consult in place with recommendations noted and appreciated. Increase ambulation as tolerated. Discharge planning progress for tomorrow with continued improvement. The impression and plan of care has been dictated as directed. : I performed a history and examination of this patient, discussed the same with the dictator. I agree with the dictator's note ,documented as a scribe. Any additional findings or plans will be noted.
--- NOTE | 2024-01-02 11:48 | P.PN ---
Subjective Progress Note Date: 01/02/24 73-year-old female, seen in the emergency department, room 3. The patient apparently presented to the hospital, on December 31, at 6:00 in the morning, for shortness of breath. She been having shortness of breath for a couple of weeks. The patient apparently was told by her family doctor, that she had asthma. She apparently has not been doing well ever since she had coronavirus infection in the past. She never has been formally diagnosed with asthma. Her complaints include shortness of breath, wheezing, chest tightness, and cough. The patient was on 2 L of oxygen. No IV fluids. She is a lifelong non-smoker. She denies any significant past medical history, other than hypothyroidism. Her home medications included Topamax, levothyroxine, Seroquel, and an albuterol inhaler. She has no allergies. White count 15.6, hemoglobin 14.2, hematocrit 45.6, and platelet count 350,000. Sodium 141, potassium 4.8, chlorides 112, CO2 19, anion gap 10, BUN 19, creatinine 0.99. The rest of the labs look normal. Chest x- ray showed only mild cardiomegaly. The patient is seen today January 02, 2024 in follow-up on the regular medical floor. She is currently sitting up in bed. Awake and alert in no acute distress. She is maintaining O2 saturation in the 90s on 2 L/min per nasal cannula. She still has some dyspnea on exertion. Still with some cough and congestion. Still rhonchorous. No new labs today. She remains on DuoNeb ventilations, Symbicort, Solu-Medrol. Procalcitonin was 0.07. Viral screen was negative. Objective - Vital Signs Vital signs: Vital Signs Temp 98 F 01/02/24 07:00 Pulse 96 01/02/24 09:00 Resp 16 01/02/24 08:35 BP 120/69 01/02/24 07:00 Pulse Ox 99 01/02/24 07:00 FiO2 Intake & Output 01/01/24 01/02/24 01/02/24 18:59 06:59 18:59 Weight 72.575 kg Other: # Voids 1 1 - Exam GENERAL EXAM: Alert, pleasant 73-year-old female, on 2 L nasal cannula, fairly comfortable in no apparent distress. HEAD: Normocephalic. EYES: Normal reaction of pupils, equal size. NOSE: Clear with pink turbinates. THROAT: No erythema or exudates. NECK: No masses, no JVD. CHEST: No chest wall deformity. LUNGS: Equal air entry with bilateral scattered rhonchi, end expiratory wheeze. CVS: S1 and S2 normal with no audible murmur, regular rhythm. ABDOMEN: No hepatosplenomegaly, normal bowel sounds, no guarding or rigidity. SPINE: No scoliosis or deformity SKIN: No rashes CENTRAL NERVOUS SYSTEM: No focal deficits, tone is normal in all 4 extremities. EXTREMITIES: There is no peripheral edema. No clubbing, no cyanosis. Peripheral pulses are intact. - Labs CBC & Chem 7: 01/01/24 06:24 01/01/24 06:24 Assessment and Plan Assessment: Acute hypoxemic respiratory failure secondary to suspected new onset adult type asthma. The patient has not been formally diagnosed. Previous history of coronavirus infection. Lifelong non-smoker. History of hypothyroidism. History of osteoarthritis. Bipolar disorder. Plan: The patient was seen and evaluated Currently stable on 2 L nasal cannula Medications reviewed Continue the current treatment plan Titrate the FiO2 as tolerated Increase her activity as tolerated We will continue to follow I have personally seen and examined the patient, performed the documentation and the assessment and plan as written. Number of minutes spent on the visit: 10.
[2024-01-02] MEDS: PANTOPRAZOLE 40 MG/10 ML VIAL IVP SCH (12:11)
--- NOTE | 2024-01-02 15:17 | P.PN ---
Subjective Progress Note Date: 01/02/24 73-year-old female, seen in the emergency department, room 3. The patient apparently presented to the hospital, on December 31, at 6:00 in the morning, for shortness of breath. She been having shortness of breath for a couple of weeks. The patient apparently was told by her family doctor, that she had asthma. She apparently has not been doing well ever since she had coronavirus infection in the past. She never has been formally diagnosed with asthma. Her complaints include shortness of breath, wheezing, chest tightness, and cough. The patient was on 2 L of oxygen. No IV fluids. She is a lifelong non-smoker. She denies any significant past medical history, other than hypothyroidism. Her home medications included Topamax, levothyroxine, Seroquel, and an albuterol inhaler. She has no allergies. White count 15.6, hemoglobin 14.2, hematocrit 45.6, and platelet count 350,000. Sodium 141, potassium 4.8, chlorides 112, CO2 19, anion gap 10, BUN 19, creatinine 0.99. The rest of the labs look normal. Chest x- ray showed only mild cardiomegaly. Objective - Vital Signs Vital signs: Vital Signs Temp 98 F 01/02/24 07:00 Pulse 96 01/02/24 09:00 Resp 16 01/02/24 08:35 BP 120/69 01/02/24 07:00 Pulse Ox 99 01/02/24 07:00 FiO2 Intake & Output 01/01/24 01/02/24 01/02/24 18:59 06:59 18:59 Weight 72.575 kg Other: # Voids 1 - Exam No acute distress, oriented 3. Currently on 2 L of oxygen. Saturations are 97%. HEENT examination is grossly unremarkable. Mucous membranes are moist. No oral lesions. Neck supple. Full range of motion. No adenopathy thyromegaly or neck vein distention. Cardiovascular examination reveals regular rhythm rate. S1-S2 normal. No S3 or S4. No discernible murmur noted. Heart sounds are distant. Heart rate 98 bpm. Lungs reveal expiratory wheezes and rhonchi. No crackles. Breath sounds equal. Slight prolongation on forced maneuver. Abdomen soft bowel sounds are heard. No masses or tenderness. Extremities are intact. No cyanosis clubbing or edema. Skin is without rash or lesion. Neurologic examination is brief but nonfocal. - Labs CBC & Chem 7: 01/01/24 06:24 01/01/24 06:24
[2024-01-02] MEDS: TOPIRAMATE 100 MG TAB PO SCH (20:59)
[2024-01-03] MEDS: PANTOPRAZOLE 40 MG TABLET PO SCH (10:01)
--- NOTE | 2024-01-03 11:28 | P.PN ---
Subjective Progress Note Date: 01/03/24 Principal diagnosis: Asthma exacerbation. 73-year-old female, seen in the emergency department, room 3. The patient apparently presented to the hospital, on December 31, at 6:00 in the morning, for shortness of breath. She been having shortness of breath for a couple of weeks. The patient apparently was told by her family doctor, that she had asthma. She apparently has not been doing well ever since she had coronavirus infection in the past. She never has been formally diagnosed with asthma. Her complaints include shortness of breath, wheezing, chest tightness, and cough. The patient was on 2 L of oxygen. No IV fluids. She is a lifelong non-smoker. She denies any significant past medical history, other than hypothyroidism. Her home medications included Topamax, levothyroxine, Seroquel, and an albuterol inhaler. She has no allergies. White count 15.6, hemoglobin 14.2, hematocrit 45.6, and platelet count 350,000. Sodium 141, potassium 4.8, chlorides 112, CO2 19, anion gap 10, BUN 19, creatinine 0.99. The rest of the labs look normal. Chest x- ray showed only mild cardiomegaly. The patient is seen today January 02, 2024 in follow-up on the regular medical floor. She is currently sitting up in bed. Awake and alert in no acute distress. She is maintaining O2 saturation in the 90s on 2 L/min per nasal cannula. She still has some dyspnea on exertion. Still with some cough and congestion. Still rhonchorous. No new labs today. She remains on DuoNeb ventilations, Symbicort, Solu-Medrol. Procalcitonin was 0.07. Viral screen was negative. Progress note dated January 03, 2024. The patient is seen today in room 526. The patient is currently on 2 L of oxygen by nasal cannula. Saturations are 98%. The patient is not receiving any IV fluids. No new labs today. The previous labs were done on December 31. The patient states that she had a rough night last night, with chest tightness, but it is a bit better today. The patient continues on Symbicort, DuoNebs, and Solu-Medrol. The patient will follow-up with me, after discharge. She has never had a formal diagnosis of asthma. Objective - Vital Signs Vital signs: Vital Signs Temp 98.5 F 01/03/24 07:33 Pulse 89 01/03/24 09:00 Resp 18 01/03/24 09:00 BP 144/57 01/03/24 07:33 Pulse Ox 96 01/03/24 07:33 FiO2 Intake & Output 01/02/24 01/03/24 01/03/24 18:59 06:59 18:59 Intake Total 160 590 Balance 160 590 Intake: Oral 160 590 Other: # Voids 2 2 - Exam No acute distress, oriented 3. No respiratory distress, or conversational dyspnea. No audible wheezing. HEENT examination is grossly unremarkable. Mucous membranes are moist. No oral lesions. Neck supple. Full range of motion. No adenopathy thyromegaly or neck vein distention. Cardiovascular examination reveals regular rhythm rate. S1-S2 normal. No S3 or S4. No discernible murmur noted. Heart rate 89 bpm. Lungs reveal expiratory wheezes. Few scattered rhonchi. No crackles. Breath sounds equal bilaterally. 2 L saturation is 96%. Abdomen soft with bowel sounds. No masses or tenderness. Extremities are intact. No cyanosis clubbing or edema. Skin is without rash or lesion. Neurologic examination is brief but nonfocal. - Labs CBC & Chem 7: 01/01/24 06:24 01/01/24 06:24 Assessment and Plan Assessment: Shortness of breath, chest tightness, cough, wheezing, which could relate to new onset adult type asthma. The patient has not been formally diagnosed. Previous history of coronavirus infection. Lifelong non-smoker. History of hypothyroidism. History of osteoarthritis. Bipolar disorder. Plan: Plan dated January 01, 2024. The patient is seen in the emergency department, room #3. She continues on oxygen at 2 L. Her daughter is with her. She is not receiving any IV fluids. She may have new onset chronic bronchial asthma. I told him that she should see me after discharge, for formal diagnosis. Today, we added Solu-Medrol to her regimen, and also Symbicort. Additional recommendations and suggestions are forthcoming. Prognosis is guarded. Chest x-rays reviewed. The patient is a woodrow anderson non-smoker. Plan dated January 03, 2024. The patient continues on appropriate medications. The patient is feeling better, but did have a rough night last night, with lots of chest tightness, and a harsh nonproductive cough. She is feeling a bit better today. Her saturations on 2 L, are 98%. She is not receiving any IV fluids. No new labs today. The patient will need follow-up after discharge. Prognosis is guarded. The patient is a lifelong non-smoker. Time with Patient: Less than 30
[2024-01-03 11:45] LABS: Basophils % (A) 0 %; Eosinophils # (A) 0.1 k/uL (0-0.7); Eosinophils % (A) 0 %; HCT 42.4 % (34.0-46.0); HGB 12.4 gm/dL (11.4-16.0); Hypochromasia Marked; Lymphocytes # (A) 0.7 k/uL (1.0-4.8); Lymphocytes % (A) 3 %; MCH 27.5 pg (25.0-35.0); MCHC 29.3 g/dL (31.0-37.0); MCV 93.8 fL (80.0-100.0); Mean Platelet Volume 7.3; Monocytes # (A) 0.6 k/uL (0-1.0); Monocytes % (A) 3 %; Neutrophils # (A) 20.9 k/uL (1.3-7.7); Neutrophils % (A) 94 %; Platelet Count 331 k/uL (150-450); RBC 4.52 m/uL (3.80-5.40); RDW 13.8 % (11.5-15.5); WBC 22.3 k/uL (3.8-10.6)
[2024-01-03 12:01] LABS: African American GFR (CKD) 63 (>60 ml/min/1.73 sqM); Anion Gap 10 mmol/L; Blood Urea Nitrogen 33 mg/dL (7-17); Calcium 9.1 mg/dL (8.4-10.2); Carbon Dioxide 18 mmol/L (22-30); Chloride 108 mmol/L (98-107); Glucose 362 mg/dL (74-99); Non-African American GFR(CKD) 55 (>60 ml/min/1.73 sqM); Potassium 4.3 mmol/L (3.5-5.1); Sodium 136 mmol/L (137-145)
--- NOTE | 2024-01-03 16:24 | P.PN ---
Subjective 73-year-old female, seen in the emergency department, room 3. The patient apparently presented to the hospital, on December 31, at 6:00 in the morning, for shortness of breath. She been having shortness of breath for a couple of weeks. The patient apparently was told by her family doctor, that she had asthma. She apparently has not been doing well ever since she had coronavirus infection in the past. She never has been formally diagnosed with asthma. Her complaints include shortness of breath, wheezing, chest tightness, and cough. The patient was on 2 L of oxygen. No IV fluids. She is a lifelong non-smoker. She denies any significant past medical history, other than hypothyroidism. Her home medications included Topamax, levothyroxine, Seroquel, and an albuterol inhaler. She has no allergies. White count 15.6, hemoglobin 14.2, hematocrit 45.6, and platelet count 350,000. Sodium 141, potassium 4.8, chlorides 112, CO2 19, anion gap 10, BUN 19, creatinine 0.99. The rest of the labs look normal. Chest x- ray showed only mild cardiomegaly. 01/03/2024 Patient is seen and evaluated in room at bedside; reports some improvement in breathing; currently on O2 at 2 L per nasal cannula with O2 saturation above 95% Vital signs are reviewed and reveal temperature 98.5, pulse 89, respiration 18 and blood pressure 144/56 Lab review shows WBC of 22.3, hemoglobin 12.4 and platelet count of 331, sodium 136, potassium 4.3, BUNs/creatinine of 33/1.03 Patient remains on Symbicort, IV Solu-Medrol and DuoNeb nebulizer treatment Possible discharge in next 24-48 hours once cleared by pulmonary Objective - Vital Signs Vital signs: Vital Signs Temp 98.5 F 01/03/24 07:33 Pulse 89 01/03/24 09:00 Resp 18 01/03/24 09:00 BP 144/57 01/03/24 07:33 Pulse Ox 96 01/03/24 07:33 FiO2 Intake & Output 01/02/24 01/03/24 01/03/24 18:59 06:59 18:59 Intake Total 160 590 Balance 160 590 Intake: Oral 160 590 Other: # Voids 2 2 - Exam No acute distress, oriented 3. Currently on 2 L of oxygen. Saturations are 97%. HEENT examination is grossly unremarkable. Mucous membranes are moist. No oral lesions. Neck supple. Full range of motion. No adenopathy thyromegaly or neck vein distention. Cardiovascular examination reveals regular rhythm rate. S1-S2 normal. No S3 or S4. No discernible murmur noted. Heart sounds are distant. Heart rate 98 bpm. Lungs reveal expiratory wheezes and rhonchi. No crackles. Breath sounds equal. Slight prolongation on forced maneuver. Abdomen soft bowel sounds are heard. No masses or tenderness. Extremities are intact. No cyanosis clubbing or edema. Skin is without rash or lesion. Neurologic examination is brief but nonfocal. - Labs CBC & Chem 7: 01/03/24 11:33 01/03/24 11:33 Assessment and Plan Assessment: 1. Shortness of breath, chest tightness, cough, wheezing, which could relate to new onset adult type asthma. The patient has not been formally diagnosed. 2. Previous history of coronavirus infection. 3. Lifelong non-smoker. 4. History of hypothyroidism. 5. History of osteoarthritis. 6. Bipolar disorder. --Patient remains on IV Solu-Medrol, Symbicort and DuoNeb nebulizer treatments -- Pulmonary embolus and recommending follow-up as an outpatient
[2024-01-04] MEDS ORDERED: RX INFO: IV CONTRAST WAS GIVEN 1 EACH MISC MISCELLANE PRN (12:17)
--- NOTE | 2024-01-04 14:50 | P.PN ---
Subjective Progress Note Date: 01/04/24 73-year-old female, seen in the emergency department, room 3. The patient apparently presented to the hospital, on December 31, at 6:00 in the morning, for shortness of breath. She been having shortness of breath for a couple of weeks. The patient apparently was told by her family doctor, that she had asthma. She apparently has not been doing well ever since she had coronavirus infection in the past. She never has been formally diagnosed with asthma. Her complaints include shortness of breath, wheezing, chest tightness, and cough. The patient was on 2 L of oxygen. No IV fluids. She is a lifelong non-smoker. She denies any significant past medical history, other than hypothyroidism. Her home medications included Topamax, levothyroxine, Seroquel, and an albuterol inhaler. She has no allergies. White count 15.6, hemoglobin 14.2, hematocrit 45.6, and platelet count 350,000. Sodium 141, potassium 4.8, chlorides 112, CO2 19, anion gap 10, BUN 19, creatinine 0.99. The rest of the labs look normal. Chest x- ray showed only mild cardiomegaly. The patient is seen today January 02, 2024 in follow-up on the regular medical floor. She is currently sitting up in bed. Awake and alert in no acute distress. She is maintaining O2 saturation in the 90s on 2 L/min per nasal cannula. She still has some dyspnea on exertion. Still with some cough and congestion. Still rhonchorous. No new labs today. She remains on DuoNeb ventilations, Symbicort, Solu-Medrol. Procalcitonin was 0.07. Viral screen was negative. Progress note dated January 03, 2024. The patient is seen today in room 526. The patient is currently on 2 L of oxygen by nasal cannula. Saturations are 98%. The patient is not receiving any IV fluids. No new labs today. The previous labs were done on December 31. The patient states that she had a rough night last night, with chest tightness, but it is a bit better today. The patient continues on Symbicort, DuoNebs, and Solu-Medrol. The patient will follow-up with me, after discharge. She has never had a formal diagnosis of asthma. On today's evaluation of 01/04/2024, the patient is being seen for a follow-up. The patient is gradually improving. Less bronchospastic and wheezy. Remains on Symbicort. Remains on DuoNeb updrafts. She has history of a thyroid lesion that has been treated with surgical resection of the thyroid and she has undergone hemithyroidectomy. No chest pain. Limited cough. No significant sputum production. There is some ongoing wheeze. She has a strong family history for asthma. In terms of the blood work, most recent blood work showed a WBC of 22 with a hemoglobin 12.4 and the patient has a sodium level of 136 with a potassium of 4.3 and a chloride of 108 with a bicarb of 18, BUN is at 33 with a creatinine of 1. Viral screen has been negative. Based on her somewhat inconsistent history of asthma, high flow was reasonable to do a CAT scan of the chest to make sure there is no other alternative pathology contributing to her ongoing shortness of breath. Objective - Vital Signs Vital signs: Vital Signs Temp 97.9 F 01/04/24 07:00 Pulse 76 01/04/24 11:13 Resp 16 01/04/24 07:00 BP 145/76 01/04/24 07:00 Pulse Ox 97 01/04/24 08:40 FiO2 Intake & Output 01/03/24 01/04/24 01/04/24 18:59 06:59 18:59 Intake Total 160 120 Balance 160 120 Intake: Oral 160 120 Other: # Voids 2 1 - Exam No acute distress, oriented 3. No respiratory distress, or conversational dyspnea. Patient is currently on room air oxygen HEENT examination is grossly unremarkable. Mucous membranes are moist. No oral lesions. Neck supple. Full range of motion. No adenopathy thyromegaly or neck vein distention. Cardiovascular examination reveals regular rhythm rate. S1-S2 normal. No S3 or S4. No discernible murmur noted. Lungs reveal expiratory wheezes. Few scattered rhonchi. No crackles. Breath sounds equal bilaterally. Abdomen soft with bowel sounds. No masses or tenderness. Extremities are intact. No cyanosis clubbing or edema. Skin is without rash or lesion. Neurologic examination is brief but nonfocal. - Labs CBC & Chem 7: 01/03/24 11:33 01/03/24 11:33 Labs: Abnormal Lab Results - Last 24 Hours (Table) 01/03/24 01/03/24 Range/Units 11:33 11:33 WBC 22.3 H (3.8-10.6) k/uL MCHC 29.3 L (31.0-37.0) g/dL Neutrophils # 20.9 H (1.3-7.7) k/uL Lymphocytes # 0.7 L (1.0-4.8) k/uL Sodium 136 L (137-145) mmol/L Chloride 108 H (98-107) mmol/L Carbon Dioxide 18 L (22-30) mmol/L BUN 33 H (7-17) mg/dL Glucose 362 H (74-99) mg/dL Assessment and Plan Plan: Acute hypoxemic respiratory failure secondary, currently on room air oxygen. This is likely secondary to asthma exacerbation. Secondary pathologies cannot be completely ruled out. The patient's history is somewhat inconsistent and not typical of asthma although the possibility of a adult onset asthma cannot be completely ruled out that should be considered. Previous history of coronavirus infection. Lifelong non-smoker. History of hypothyroidism. History of osteoarthritis. Bipolar disorder. Plan: Patient is currently on room air oxygen. Will proceed with a CAT scan of the chest with contrast. If negative, the patient can be discharged home on a Symbicort maintenance, prednisone burst taper and albuterol rescue inhaler rescue inhaler on a as needed basis to be followed up by pulmonology
--- NOTE | 2024-01-04 14:51 | P.DS ---
Providers Date of admission: 01/01/24 07:43 Expected date of discharge: 01/04/24 Attending physician: Adryan Branch MD Consults: 01/01/24 07:44 Consult Physician Urgent Consulting Provider: Andres Glaser Consult Reason/Comments: Asthma Do you want consulting provider notified?: Yes Primary care physician: Maggy Branch [facility] Course: Final Diagnoses: Acute hypoxic respiratory failure in a patient went stating lingering cough since her COVID infection in 2021, worsening shortness of breath , cough , chest tightness and wheezing, reporting new onset asthma-not formally diagnosed, further workup outpatient with pulmonary. COVID infection x 2, 2021 and recently in October 2023 Hypothyroidism Osteoarthritis Bipolar disorder Obesity, BMI 30 Lifelong non-smoker Plan: This is a 73-year-old female with past medical history significant for COVID infection in 2021 and in October 2023, obesity, hypothyroidism, osteoarthritis, bipolar, depression, lifelong non-smoker and multiple other medical issues presented to the ER with worsening dyspnea. Reports possible newly diagnosed asthma ,has a rescue inhaler at home. Since her initial COVID infection in 2021 ,she has a lingering nonproductive cough. Complains of worsening dyspnea over the last couple weeks accompanied by wheezing, nonproductive cough with chest pressure after completing antibiotics and a steroid taper.Denies Chest Pain or Palpitations. Denies any lower extremity edema. Denies history of DVT or PE . Attempted her rescue inhaler without relief. Reports O2 Sat at Home 89% on Room Air. Chest x-ray reported mild cardiomegaly without acute pulmonary process. Viral studies negative. afebrile, WBC 15.6, lactic acid 1.3, procalcitonin pending. Hemoglobin 14.2, platelets 350, electrolytes within normal limits with mild elevation of chloride 112, bicarb 19, BUN 19, creatinine 0.99, glucose 164. EKG reported sinus tachycardia, troponin negative x 1, proBNP 68. On admission O2 sat 93% on room air, tachypneic ,tachycardic with heart rate in the 1 teens. Currently maintaining O2 sats of 97% on room air, heart rate 98 and respiratory rate within normal limits. Evaluated and treated by pulmonary recommending further workup outpatient in clinic. Significant clinical improvement. Currently maintaining O2 sats in the high 90s on 2 L nasal cannula which can be further titrated off as tolerated. Afebrile. Reports rib pain with coughing, nonproductive cough. Exertional shortness of breath improved. Chest CT pending. Patient will be discharged home today in stable condition with guarded prognosis pending chest CT, final DC recommendations and clearance per pulmonary. The impression and plan of care has been dictated as directed. : I performed a history and examination of this patient, discussed the same with the dictator. I agree with the dictator's note ,documented as a scribe. Any additional findings or plans will be noted. Patient Condition at Discharge: Stable Plan - Discharge Summary Discharge Rx Participant: No New Discharge Prescriptions: New predniSONE 10 mg PO DIRECTED #30 tab Pantoprazole [Protonix] 40 mg PO AC-BRKFST #15 tab Budesonide-Formot 160-4.5 Mcg [Symbicort 160-4.5 Mcg Inhaler] 2 puff INHALATION RT-BID #1 each Continue Topiramate [Topamax] 100 mg PO HS QUEtiapine [SEROquel] 50 mg PO HS Levothyroxine Sodium [Synthroid] 25 mcg PO HS Albuterol Inhaler [Ventolin Hfa Inhaler] 1 - 2 puff INHALATION Q6H PRN #1 each PRN Reason: Shortness Of Breath Discharge Medication List Topiramate [Topamax] 100 mg PO HS 04/02/15 [History] QUEtiapine [SEROquel] 50 mg PO HS 02/26/23 [History] Albuterol Inhaler [Ventolin Hfa Inhaler] 1 - 2 puff INHALATION Q6H PRN #1 each 12/13/23 [Rx] Levothyroxine Sodium [Synthroid] 25 mcg PO HS 01/01/24 [History] Budesonide-Formot 160-4.5 Mcg [Symbicort 160-4.5 Mcg Inhaler] 2 puff INHALATION RT-BID #1 each 01/04/24 [Rx] Pantoprazole [Protonix] 40 mg PO AC-BRKFST #15 tab 01/04/24 [Rx] predniSONE 10 mg PO DIRECTED #30 tab 01/04/24 [Rx] Follow up Appointment(s)/Referral(s): Maggy Branch DO [Primary Care Provider] - 3 Days Andres Glaser DO [Doctor of Osteopathic Medicine] - 2 Weeks Patient Instructions/Handouts: Prednisone (By mouth), Pantoprazole (By mouth), Budesonide/Formoterol (By breathing), Hypoxia (GEN) Activity/Diet/Wound Care/Special Instructions: Further pulmonary workup outpatient, confirm pulmonary follow-up.
[2024-01-04 15:13] VITALS: BP 128/73; RESP 17; TEMP 98.3
[2024-01-04 15:46] VITALS: PULSE 88
--- NOTE | 2024-01-04 15:54 | CT ---
EXAMINATION TYPE: CT chest w con DATE OF EXAM: 01/04/2024 COMPARISON: None HISTORY: dyspnea CT DLP: 668 mGycm Automated exposure control for dose reduction was used. TECHNIQUE: CT scan of the chest is performed with IV Contrast, patient injected with 80ml mL of Isovue 370. MIP Images are created on CT scanner and reviewed. 3D reconstructed images are created on an independent workstation and reviewed. FINDINGS: CT thorax with contrast HISTORY: Dyspnea. COMPARISON: None TECHNIQUE: Multiple axial images are obtained through the thorax without use of IV contrast material. FINDINGS: There is no suspicious lung mass or nodule The lungs are clear and there is no abnormal consolidation or interstitial density. There is no mediastinal, hilar or axillary adenopathy. There is no pleural effusion, pleural thickening or pneumothorax. No focal osseous lesions are seen. Limited scans the upper abdomen reveals no gross adenopathy. IMPRESSION: No acute cardiopulmonary disease. No significant abdomen is seen.
== END 2024-01-04 16:51 | disposition home or self-care (01) ==
LOC: EC 06:09 → 6NMEDSUR 07:43 → 5NMEDONC 14:49
PROVIDERS: ADMIT Family Medicine; ATTEND Family Medicine
DX: J96.01 Acute respiratory failure with hypoxia (principal); J45.901 Unspecified asthma with (acute) exacerbation; F31.9 Bipolar disorder, unspecified; E03.9 Hypothyroidism, unspecified; M19.90 Unspecified osteoarthritis, unspecified site; E66.9 Obesity, unspecified; Z68.30 Body mass index [BMI] 30.0-30.9, adult; Z86.16 Personal history of COVID-19; Z79.890 Hormone replacement therapy; Z79.899 Other long term (current) drug therapy
CPT/HCPCS: 96376 ×5; 96375 ×2; 96374; 99285; 36415; 94640 ×8; 94760; 93005; 83880; 80053; 80048; 83605; 83735; 84484; 85025 ×2; 85610; 85730; 84145; 87636; 71045; 71260; G0378 ×5; J2930 ×4; J1885; C9113; Q9967

== ENCOUNTER → 2024-02-12 | Outpatient (CLI) | payer MEDICARE ==
--- NOTE | 2024-02-15 11:51 | MM ---
Reason for Exam: Screening (asymptomatic). Last mammogram was performed 1 year(s) and 8 month(s) ago. Patient History: Menarche at age 10. First Full-Term at age 24. Left ovary removed at age 33. Right ovary removed at age 33. Hysterectomy at age 33. Postmenopausal. Estrogen for 10 years from age 45 until age 55. Hormonal Contraceptives, starting at age 21 for 3 years. 10/29/2009, Benign Core Biopsy on the right side. Maternal grandmother had breast cancer, age 50. Risk Values: Sirena 5 year model risk: 2.1%. NCI Lifetime model risk: 5.0%. Prior Study Comparison: 06/24/2016 Bilateral Screening Mammogram, [facility]. 06/14/2018 Bilateral Screening Mammogram, [facility]. 05/28/2022 Bilateral MG 3D screening mammo w/cad, [facility]. Tissue Density: The breasts are almost entirely fatty. Findings: Analyzed By CAD. Right breast: There is no suspicious group of microcalcifications or new suspicious mass. Left breast: There is no suspicious group of microcalcifications or new suspicious mass. Overall Assessment: Negative, BI-RAD 1 Management: Screening Mammogram of both breasts in [address] [facility] will attempt to contact patient to return for supplemental views and ultrasound if indicated. Patient should continue monthly self-breast exams. A clinical breast exam by your physician is recommended on an annual basis. This exam should not preclude additional follow-up of suspicious palpable abnormalities. Note on Sirena scores and lifetime risk: 1. A Sirena score greater than 3% is considered moderate risk. If this is the case, consider specialist referral to assess eligibility for a risk reducing agent. 2. If overall lifetime risk for the development of breast cancer is 20% or higher, the patient may qualify for future screening with alternating mammogram and breast MRI. Electronically signed and approved by: Andres Casey DO
== END | disposition home or self-care (01) ==
LOC: RADMAMWWP 13:50
PROVIDERS: ATTEND Family Medicine
DX: Z12.31 Encounter for screening mammogram for malignant neoplasm of breast (principal); Z78.0 Asymptomatic menopausal state; Z80.3 Family history of malignant neoplasm of breast
CPT/HCPCS: 77063; 77067

== ENCOUNTER → 2024-05-11 | Outpatient (CLI) | payer MEDICARE ==
--- NOTE | 2024-05-11 11:24 | CA ---
Exercise Stress Test Report Name: Hillary Merino Exam Date: 05/11/2024 09:56 Exam Location: [place] Stress Ht (in): 61 Wt (lb): 150 BSA: 1.67 Ordering Phys: Maggy Branch DO Referring Phys: Andres Glaser DO Technologist: Delia Sweeney RDCS Age: 74 Gender: F : 1950 Procedure CPT: Indications: I20.9 ANGINA PECTORIS, UNSPECIFIED ICD-10 Codes: Patient History: CP, MELISSA, PALP, FAMILY HX Medications: SYNTHROID, METFORMIN, TRILOGY INHALER, ALBUTEROL INHALER, TOPAMETEL, Meds past 24 hrs: Pretest Chest Pain: STRESS TEST Isaiah Protocol Exercise Duration (min:sec): 04:[address] Depressions (mm): Angina Score: Sun Score: Resting HR (bpm): 80 Peak HR (bpm): 129 Resting BP (mmHg): 157 / 75 Peak BP (mmHg): 185 / 67 MPHR: 147 Target HR: 125 % MPHR: 88 METS: 6.5 Total Dose: Peak Dose: Atropine: Double Product: 38266 BP Response: Stress Termination: Reached target heart rate Stress Symptoms: DYSPNEA Stress Summary: ECG ANALYSIS Resting ECG: Normal sinus rhythm normal axis nonspecific ST-T wave changes Stress ECG: Patient exercised on Isaiah protocol for 4 minutes achieving 85% of predicted maximal heart rate without chest pain and the EKG changes are nondiagnostic CONCLUSIONS Very poor exercise tolerance Abnormal baseline EKG inconclusive EKG portion of the stress test Dr. Jamar Campos MD (Electronically Signed) Final Date: 11 May 2024 11:23
--- NOTE | 2024-05-11 13:31 | NM ---
EXAMINATION TYPE: NM stress cardiolite complete DATE OF EXAM: 05/11/2024 COMPARISON: NONE CLINICAL INDICATION: Female, 74 years old with history of I20.9 ANGINA PECTORIS, UNSPECIFIED; TECHNIQUE: After the intravenous administration of 10.5 mCi Tc 99m Sestamibi - Rest images obtained 75 minutes post injection. The patient exercised using a XAVIER protocol and 1 minute prior to peak exercise was injected with 26.3 mCi Tc 99m Sestamibi - Stress images obtained 10 minutes post injecti on. FINDINGS: Targeted heart rate was achieved during performance of the study. Review of stress and rest SPECT chelsie ges demonstrates no distinct perfusion abnormality. Gated analysis shows normal wall motion with an estimated left ventricular ejection fraction of 65 %. IMPRESSION: No scintigraphic evidence for reversible ischemia
== END | disposition home or self-care (01) ==
LOC: RADNMMAIN 08:08
PROVIDERS: ATTEND Family Medicine
DX: I20.9 Angina pectoris, unspecified (principal); R94.31 Abnormal electrocardiogram [ECG] [EKG]
CPT/HCPCS: 93017; 78452; A9500

== ENCOUNTER → 2024-11-22 | Outpatient (CLI) | payer MEDICARE ==
--- NOTE | 2024-11-22 11:40 | MM ---
Reason for Exam: Clinical finding. Last screening mammogram was performed 10 month(s) ago. Patient History: Menarche at age 10. First Full-Term at age 24. Left ovary removed at age 33. Right ovary removed at age 33. Hysterectomy at age 33. Postmenopausal. Estrogen for 10 years from age 45 until age 55. Hormonal Contraceptives, starting at age 21 for 3 years. 10/29/2009, Benign Core Biopsy on the right side. Maternal grandmother had breast cancer, age 50. Risk Values: Sirena 5 year model risk: 2.1%. NCI Lifetime model risk: 5.0%. Tissue Density: There are scattered areas of fibroglandular density. Findings: Analyzed By CAD. Mammotome biopsy clip in right breast is redemonstrated. There are regional tiny benign-appearing round calcifications near this level redemonstrated. Benign-appearing right axillary lymph node is noted. No suspicious new mass or distortion is identified bilaterally. Overall Assessment: Incomplete: need additional imaging evaluation, BI-RAD 0 Management: Diagnostic Breast Ultrasound of the right breast. Targeted ultrasound right breast due to localized pain. Results were given to the patient verbally at the time of exam. Patient should continue monthly self-breast exams. A clinical breast exam by your physician is recommended on an annual basis. This exam should not preclude additional follow-up of suspicious palpable abnormalities. Note on Sirena scores and lifetime risk: 1. A Sirena score greater than 3% is considered moderate risk. If this is the case, consider specialist referral to assess eligibility for a risk reducing agent. 2. If overall lifetime risk for the development of breast cancer is 20% or higher, the patient may qualify for future screening with alternating mammogram and breast MRI. [facility], , 11/22/2024 11:38 AM. Electronically signed and approved by: Dariusz Gomes M.D.
--- NOTE | 2024-11-22 12:21 | USB ---
Reason for Exam: Clinical finding. Patient History: Menarche at age 10. First Full-Term at age 24. Left ovary removed at age 33. Right ovary removed at age 33. Hysterectomy at age 33. Postmenopausal. Estrogen for 10 years from age 45 until age 55. Hormonal Contraceptives, starting at age 21 for 3 years. 10/29/2009, Benign Core Biopsy on the right side. Maternal grandmother had breast cancer, age 50. Risk Values: Sirena 5 year model risk: 2.1%. NCI Lifetime model risk: 5.0%. Technique: Method: Targeted. Prior Study Comparison: 09/29/2008 Right Diagnostic Ultrasound, [facility]. 06/14/2018 Bilateral Screening Mammogram, [facility]. 05/28/2022 Bilateral MG 3D screening mammo w/cad, [facility]. 02/12/2024 Bilateral MG 3D screening mammo w/cad, [facility]. Findings: The axilla of the right breast and the retroareolar of the right breast were scanned. A targeted ultrasound right axilla. No solid or cystic masses are identified. No suspicious abnormal adenopathy. Overall Assessment: Negative, BI-RAD 1 Management: Screening Mammogram of both breasts in 1 year. Manage patient's symptoms clinically. A clinical breast exam by your physician is recommended on an annual basis and results should be correlated with mammographic findings. This exam should not preclude additional follow-up of suspicious palpable abnormalities. Results were given to the patient verbally at the time of exam. [facility], , 11/22/2024 12:18 PM. Electronically signed and approved by: Dariusz Gomes M.D.
== END | disposition home or self-care (01) ==
LOC: RADMAMWWP 11:06
PROVIDERS: ATTEND Family Medicine
DX: R92.323 Mammographic fibroglandular density, bilateral breasts (principal); N64.4 Mastodynia; Z90.722 Acquired absence of ovaries, bilateral; Z78.0 Asymptomatic menopausal state; Z80.3 Family history of malignant neoplasm of breast; Z92.0 Personal history of contraception
CPT/HCPCS: 77066; 76642; G0279; 77062

== ENCOUNTER 2025-02-06 08:16 | Day surgery (SDC) | payer MEDICARE ==
[2025-02-03 09:19] VITALS: BMI 25.1
[2025-02-06] MEDS ORDERED: LIDOCAINE 1% (10MG/ML) FOR IV START INTRADERMA PRN (08:26)
[2025-02-06] MEDS: IV FLUID CONTINUATION 1,000 ML IV ONE (08:27)
[2025-02-06 08:46] LABS: Glucose,Whole Blood 106 mg/dL (70-110)
[2025-02-06 08:47] VITALS: TEMP 97.5
[2025-02-06] MEDS: LACTATED RINGERS 1,000 ML IV SCH (08:48)
[2025-02-06] MEDS ORDERED: PROPOFOL 10 MG/ML 20 ML VIAL IV ONE (09:27)
--- NOTE | 2025-02-06 09:57 | P.PCN ---
Date of Procedure: 02/06/25 Preoperative Diagnosis: Screening for colon cancer Postoperative Diagnosis: Normal colon Procedure(s) Performed: Colonoscopy Anesthesia: MAC Surgeon: Krishna Cadena Pathology: none sent Condition: stable Disposition: same day Indications for Procedure: 75-year-old female presents today for screening colonoscopy. No blood in her stool. Denies family history of colon cancer. Risks, benefits and alternatives were provided to the patient. All questions answered. Operative Findings: Normal colon Description of Procedure: The patient was brought to the endoscopy suite and placed in left lateral decubitus position and adequate sedation was achieved using conscious sedation. Digital rectal exam was performed and mild internal hemorrhoids were palpated. An endoscope was then placed in the rectum and advanced to the cecum as identified by landmarks including the appendiceal orifice and the ileocecal valve. The prep was good. The colonoscope was then slowly withdrawn, examining for any mucosal abnormalities. The cecum, ascending, transverse, descending and sigmoid colon were visualized adequately. There were no large neoplastic lesions noted throughout the colon. No obvious polyps noted throughout the colon. No evidence of diverticulosis. Hemostasis was maintained. Retroflexion was performed in the rectum and internal hemorrhoids. Excess air was removed, the colonoscope withdrawn and the procedure terminated. The patient was then transferred to the recovery unit in stable condition. Repeat colonoscopy should be performed in 10 years.
[2025-02-06 10:14] VITALS: BP 157/89; PULSE 83; RESP 18
== END 2025-02-06 10:39 | disposition home or self-care (01) ==
LOC: ORWHC2ENDO 08:16
PROVIDERS: ATTEND Surgery
DX: Z12.11 Encounter for screening for malignant neoplasm of colon (principal); E03.9 Hypothyroidism, unspecified
CPT/HCPCS: J2704; G0121; 45378

== ENCOUNTER → 2025-05-04 | Outpatient (CLI) | payer MEDICARE ==
[~2025-05-04] MED LIST changes: -ALPRAZolam 0.25 MG TAB PO PRN; +REGADENOSON 0.4 MG/5 ML SYRINGE IV PRN
--- NOTE | 2025-05-04 11:46 | CA ---
Lexiscan Nuclear Stress Test Report Name: Hillary Merino Exam Date: 05/04/2025 09:41 Exam Location: [place] Stress Ht (in): 61 Wt (lb): 150 BSA: 1.67 Ordering Phys: Maggy Branch DO Referring Phys: Maggy Branch DO Technologist: POPEYE Age: 75 Gender: F : 1950 Procedure CPT: Indications: I20.9 Angina ICD-10 Codes: Patient History: Shortness of breath, palpitations and hypertension. Medications: Meds past 24 hrs: Pretest Chest Pain: STRESS TEST Lexiscan Protocol Exercise Duration (min:sec): 02:[address] Depressions (mm): Angina Score: Sun Score: Resting HR (bpm): 65 Peak HR (bpm): 100 Resting BP (mmHg): 138 / 65 Peak BP (mmHg): 153 / 69 MPHR: 146 Target HR: 124 % MPHR: 68 METS: 1.0 Total Dose: Peak Dose: Atropine: Double Product: 52148 BP Response: Stress Termination: Infusion complete Stress Symptoms: No chest pain or symptoms Stress Summary: ECG ANALYSIS Resting ECG: Stress ECG: CONCLUSIONS Nondiagnostic stress test Dr. Jairon Deleon MD (Electronically Signed) Final Date: 04 May 2025 11:46
--- NOTE | 2025-05-04 14:24 | NM ---
EXAMINATION TYPE: NM stress lexiscan cardiolite DATE OF EXAM: 05/04/2025 COMPARISON: NONE CLINICAL INDICATION: Female, 75 years old with history of I20.9 angina; TECHNIQUE: After the intravenous administration of 9.9 mCi Tc 99m Sestamibi - Cardiolite resting SPE CT images acquired 25.9 minutes post injection. The patient received 0.4mg Lexiscan, 45 mCi Tc 99m Sestamibi - Stress images obtained 45 minutes post injection FINDINGS: Review of stress and rest SPECT images demonstrates mild fixed defect along the mid to apical septal and mid to basal lateral brunson without any distinct reversibility. Gated analysis shows normal wall m otion with an estimated left ventricular ejection fraction of 90 %. TID is upper limits of normal at 1.13. IMPRESSION: Findings favored to represent attenuation artifact involving septal and lateral brunson. Correlate clin ically for the possibility of old infarcts. No discrete reversibility is seen. [facility], , 05/04/2025 2:22 PM
== END | disposition home or self-care (01) ==
LOC: RADNMMAIN 07:45
PROVIDERS: ATTEND Family Medicine
DX: I20.9 Angina pectoris, unspecified (principal); I10 Essential (primary) hypertension; R00.2 Palpitations
CPT/HCPCS: 93017; 78452; A9500; J2785